=== PATIENT | female | born 2005 | race Caucasian/White ===

== ENCOUNTER 2024-04-19 21:23 | Emergency (ER) | payer OTHER, SELFPAY ==
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
[2024-04-20] MEDS: MOTRIN 600 MG PO (01:27)
== END 2024-04-20 02:12 | disposition home or self-care (01) ==
LOC: EMR 21:23
PROVIDERS: EMERGENCY PHYSICIAN Emergency Medicine
DX: S16.1XXA Strain of muscle, fascia and tendon at neck level, initial encounter (principal); V47.6XXA Car passenger injured in collision with fixed or stationary object in traffic accident, initial encounter; Y92.410 Unspecified street and highway as the place of occurrence of the external cause
CPT/HCPCS: 99283; 72050